=== PATIENT | male | born 1955 | race Caucasian/White ===

== ENCOUNTER → 2019-09-15 | Outpatient (CLI) | payer OTHER ==
[~2019-09-15] MED LIST: ACET-76 PO; ASPI-496 PO; ATOR20TA37 PO; LISI-170 PO
[2019-09-15 15:07] LABS: ALANINE AMINOTRANSFERASE 28 U/L (12-78); ALBUMIN 3.6 g/dL (3.4-5.0); ANION GAP 6 mmol/L (5-15); CALCIUM 8.8 mg/dL (8.5-10.1); CHLORIDE 105 mmol/L (98-107)
[2019-09-15 15:10] LABS: ALKALINE PHOSPHATASE 105 U/L (45-117); BILIRUBIN,TOTAL 0.2 mg/dL (0.2-1.0); CREATININE 1.08 mg/dL (0.7-1.3); TOTAL PROTEIN 7.4 g/dL (6.4-8.2)
== END | disposition home or self-care (01) ==
LOC: STAR 13:38
PROVIDERS: ATTEND Urology
DX: Z01.818 Encounter for other preprocedural examination (principal); C67.9 Malignant neoplasm of bladder, unspecified
CPT/HCPCS: 36415; 80053; 87086; 93005

== ENCOUNTER 2019-09-21 11:42 | Inpatient (IN) | payer OTHER ==
[~2019-09-21] VITALS: Ht 160 cm; Wt 91.0 kg
[2019-09-21] MEDS ORDERED: GABAPENTIN 300 MG CAPSULE PO ONE (12:00)
[2019-09-21] MEDS ORDERED: ACETAMINOPHEN 500 MG TABLET PO ONE (12:00)
[2019-09-21 12:29] VITALS: BP 167/97
[2019-09-21] MEDS ORDERED: CIPR500T3 PO (12:33)
[2019-09-21] MEDS ORDERED: LACTATED RINGERS 1,000 ML IV SCH (12:34)
[2019-09-21] MEDS ORDERED: MIDAZOLAM 1 MG/ML, 2ML ONE (13:22)
[2019-09-21] MEDS ORDERED: FENTANYL PF 250 MCG/5ML ONE (13:23)
[2019-09-21] MEDS ORDERED: ROCURONIUM 10MG/ML,5ML ONE (13:23)
[2019-09-21] MEDS ORDERED: PROPOFOL 10 MG/ML, 20ML ONE (13:23)
[2019-09-21] MEDS ORDERED: LIDOCAINE-MPF 2% ,5ML ONE (13:23)
[2019-09-21] MEDS ORDERED: ONDANSETRON 2MG/ML, 2ML ONE (13:26)
[2019-09-21] MEDS ORDERED: DEXAMETHASONE 4 MG/ML, 1ML ONE (13:26)
[2019-09-21] MEDS ORDERED: CEFAZOLIN 1,000 MG ONE ×2 (13:26)
[2019-09-21] MEDS ORDERED: ESMOLOL 100 MG/10 ML ONE (13:50)
[2019-09-21] MEDS ORDERED: SUGAMMADEX 200 MG/2 ML IVPush ONE (13:50)
[2019-09-21] MEDS ORDERED: OXYcodone 5 MG/5 ML ORAL.SOL UDC PO PRN (14:30)
[2019-09-21] MEDS ORDERED: hydrALAzine 20 MG/ML, 1ML IV PRN (14:30)
[2019-09-21] MEDS ORDERED: LORazepam 2 MG/ML, 1ML IVPush PRN (14:30)
[2019-09-21] MEDS ORDERED: MEPERIDINE/PF 25MG/ML,1ML IVPush PRN (14:30)
[2019-09-21] MEDS ORDERED: ONDANSETRON 2MG/ML, 2ML IV PRN (14:30)
[2019-09-21] MEDS ORDERED: FENTANYL PF 100 MCG/2ML ONE (15:52)
[2019-09-21] MEDS ORDERED: OXYcodone 5 MG/5 ML ORAL.SOL UDC ONE (15:53)
[2019-09-21] MEDS ORDERED: HYDROmorphone 1 MG/ML, 1ML INJ ONE ×2 (15:53→16:34)
[2019-09-21] MEDS: FENTANYL PF 100 MCG/2ML IV PRN ×2 (15:55→16:05)
[2019-09-21] MEDS ORDERED: LABETALOL 5MG/ML, 20ML ONE (16:16)
[2019-09-21] MEDS: HYDROmorphone 2 MG/ML, 1ML IVPush PRN ×4 (16:17→17:00)
[2019-09-21] MEDS: LABETALOL 5MG/ML, 20ML IV PRN ×2 (16:22→16:33)
[2019-09-21 17:38] VITALS: BP 158/84
[2019-09-21] MEDS ORDERED: OPIUM/BELLADONNA SUPP.RECT 16.2-60 MG PR PRN (18:00)
[2019-09-21] MEDS ORDERED: MORPHINE SULFATE 4 MG/ML, 1ML IV PRN (18:00)
[2019-09-21] MEDS ORDERED: ACETAMINOPHEN 500 MG TABLET PO PRN (18:00)
[2019-09-21] MEDS: LABETALOL 5MG/ML, 20ML IV SCH (18:47)
[2019-09-21 18:53] VITALS: BP 154/82
[2019-09-21] MEDS ORDERED: ATORVASTATIN 20 MG TABLET PO SCH (21:00)
[2019-09-21] MEDS ORDERED: LISINOPRIL 20 MG TABLET PO SCH (21:00)
[2019-09-21] MEDS: CIPROFLOXACIN/PMX 400MG/200ML 200 ML IVPB SCH (22:17)
[2019-09-22] MEDS: D5%-0.45NACL+KCL 20MEQ 1,000 ML IV SCH ×2 (00:38→10:00)
[2019-09-22 00:56] VITALS: BP 143/77
[2019-09-22] MEDS: LABETALOL 5MG/ML, 20ML IV SCH ×2 (02:00→10:00)
[2019-09-22 04:24] VITALS: BP 130/67
[2019-09-22 05:14] LABS: ANION GAP 7 mmol/L (5-15); CALCIUM 8.5 mg/dL (8.5-10.1); CHLORIDE 100 mmol/L (98-107)
[2019-09-22 05:15] LABS: CREATININE 1.21 mg/dL (0.7-1.3)
[2019-09-22 06:48] VITALS: BP 137/65
[2019-09-22] MEDS ORDERED: GADOTERATE 10 MMOL/20 ML SYR ONE (11:22)
[2019-09-22] MEDS: CIPROFLOXACIN/PMX 400MG/200ML 200 ML IVPB SCH (11:40)
[2019-09-22 12:37] VITALS: BP 150/78
[2019-09-22 13:49] VITALS: BP 152/72
== END 2019-09-22 15:10 | disposition home or self-care (01) | DRG 670 ==
LOC: OUT 11:42 → 4NE 17:30 → OUT 21:57 → 4NE 21:58 → DCLOUNGE 09-22 15:00
PROVIDERS: ADMIT Urology; ATTEND Urology
PROC: 0TBB8ZZ Excision of Bladder, Via Natural or Artificial Opening Endoscopic (ICD-10-PCS; principal; 2019-09-21 14:30)
DX: C67.9 Malignant neoplasm of bladder, unspecified (principal); I10 Essential (primary) hypertension; E78.5 Hyperlipidemia, unspecified; E11.9 Type 2 diabetes mellitus without complications; E78.00 Pure hypercholesterolemia, unspecified; J43.9 Emphysema, unspecified; Z80.42 Family history of malignant neoplasm of prostate; Z87.891 Personal history of nicotine dependence; Z79.899 Other long term (current) drug therapy
CPT/HCPCS: 36415; J3490; 72197; 80048; 82962; 85014; 85018; 88305; G0378; J0690; J0744; J1100; J1170; J2250; J2405; J2704; J3010; A9575; J2270; J3480; J7120

== ENCOUNTER → 2019-10-13 | Outpatient (CLI) | payer OTHER ==
[~2019-10-13] MED LIST changes: +CIPR500T3 PO
== END | disposition home or self-care (01) ==
LOC: CVU 06:37
PROVIDERS: ATTEND Pathology Hematology
DX: C78.00 Secondary malignant neoplasm of unspecified lung (principal); C67.8 Malignant neoplasm of overlapping sites of bladder; I08.0 Rheumatic disorders of both mitral and aortic valves; R91.8 Other nonspecific abnormal finding of lung field; N13.30 Unspecified hydronephrosis; M16.0 Bilateral primary osteoarthritis of hip; D17.9 Benign lipomatous neoplasm, unspecified; N32.9 Bladder disorder, unspecified; I10 Essential (primary) hypertension
CPT/HCPCS: 78815; 93306; A9552